=== PATIENT | male | born 1965 | race Caucasian/White ===

== ENCOUNTER 2018-06-26 04:12 | Emergency (ER) | payer OTHER ==
[2018-06-26 04:51] LABS: ADD MAN DIFF? NO
[2018-06-26 04:52] LABS: WHITE BLOOD COUNT 10.2 10^3/ul (4.8-10.8)
[2018-06-26 04:52] LABS: BASOPHILS % 0.4 % (0.0-2.0); EOSINOPHILS # 0.1 10^3/ul (0.0-0.5); EOSINOPHILS % 0.5 % (0.0-7.0); HEMATOCRIT 38.2 % (42.0-52.0); HEMOGLOBIN 13.7 g/dl (14.0-18.0); LYMPHOCYTES # 1.2 10^3/ul (0.8-2.9); LYMPHOCYTES % 11.5 % (15.0-51.0); MEAN CORPUSCULAR HEMOGLOBIN 30.1 pg (29.0-33.0); MEAN CORPUSCULAR HGB CONC 35.9 g/dl (32.0-37.0); MEAN PLATELET VOLUME 9.3 fl (7.4-10.4); MONOCYTE # 0.5 10^3/ul (0.3-0.9); MONOCYTES % 5.1 % (0.0-11.0); NEUTROPHIL # 8.4 10^3/ul (1.6-7.5); NEUTROPHILS % 82.3 % (39.0-77.0); PLATELET COUNT 248 10^3/UL (140-415); RED BLOOD COUNT 4.55 10^6/ul (4.70-6.10); RED CELL DISTRIBUTION WIDTH 12.4 % (11.5-14.5)
[2018-06-26 05:11] LABS: INR 0.94; PROTIME 12.7 Sec (11.9-14.9)
[2018-06-26 05:16] LABS: ADD UMIC NO; UR ASCORBIC ACID 40 mg/dL (NEGATIVE); UR BILIRUBIN (Dip) NEGATIVE (NEGATIVE); UR BLOOD (Dip) NEGATIVE (NEGATIVE); UR CLARITY CLEAR (CLEAR); UR COLOR AMBER (YELLOW); UR GLUCOSE (Dip) NEGATIVE (NEGATIVE); UR KETONES (Dip) NEGATIVE (NEGATIVE); UR LEUKOCYTE ESTERASE (Dip) NEGATIVE Leu/ul (NEGATIVE); UR NITRITE (Dip) NEGATIVE (NEGATIVE); UR SPECIFIC GRAVITY (Dip) 1.019 (1.003-1.030); UR TOTAL PROTEIN (Dip) NEGATIVE (NEGATIVE); UR UROBILINOGEN (Dip) 2+ mg/dL (NEGATIVE)
[2018-06-26 05:17] LABS: ALANINE AMINOTRANSFERASE 266 IU/L (13-69); ALBUMIN 4.3 g/dl (3.3-4.9); ALBUMIN/GLOBULIN RATIO 1.34; ALKALINE PHOSPHATASE 120 IU/L (42-121); ANION GAP 6 (5-13); ASPARTATE AMINO TRANSFERASE 332 IU/L (15-46); BLOOD UREA NITROGEN 19 mg/dl (7-20); CALCIUM 9.2 mg/dl (8.4-10.2); CARBON DIOXIDE 31 mmol/L (21-31); CHLORIDE 104 mmol/L (97-110); CREATININE 0.89 mg/dl (0.61-1.24); Estimated GFR > 60 mL/min (>60); GLUCOSE 161 mg/dl (70-220); LIPASE 39 U/L (23-300); POTASSIUM 3.7 mmol/L (3.5-5.1); SODIUM 141 mmol/L (135-144); TOTAL PROTEIN 7.5 g/dl (6.1-8.1)
[2018-06-26 05:29] LABS: TROPONIN-I < 0.012 ng/ml (0.000-0.120)
[2018-06-26] MEDS: FAMOTIDINE 20 MG TAB PO (05:42)
[2018-06-26] MEDS: LIDOCAINE/MYLANTA 40 ML BTL PO (05:43)
[2018-06-26 07:47] LABS: BILIRUBIN,INDIRECT 0.7 mg/dl (0-1.1); BILIRUBIN,TOTAL 0.9 mg/dl (0.2-1.3)
== END 2018-06-26 06:05 | disposition home or self-care (01) ==
LOC: E/R 04:12
DX: K76.9 Liver disease, unspecified (principal); I10 Essential (primary) hypertension; Z87.891 Personal history of nicotine dependence
CPT/HCPCS: 36415; 71045; 74176; 80053; 81003; 83690; 84484; 85025; 85610; 93005; 99285-25

== ENCOUNTER 2018-08-12 08:05 | Day surgery (SDC) | payer OTHER ==
[2018-08-12] MEDS ORDERED: LIDOCAINE 2% (SDV) 5 ML INJ (10:11)
[2018-08-12] MEDS ORDERED: PROPOFOL 40 ML (10:11)
[2018-08-12] MEDS ORDERED: ONDANSETRON 4 MG INJ IV (10:30)
== END 2018-08-12 14:38 | disposition home or self-care (01) ==
LOC: GIL 08:05
DX: Z12.11 Encounter for screening for malignant neoplasm of colon (principal); D12.5 Benign neoplasm of sigmoid colon; K64.8 Other hemorrhoids
CPT/HCPCS: 45380; 88305

== ENCOUNTER 2018-11-11 08:19 | Day surgery (SDC) | payer OTHER ==
[2018-11-11] MEDS: CEFAZOLIN 2 GM/50 ML (PMX) 50 ML IVPB (06:00)
[2018-11-11] MEDS: SOD CHLORIDE 0.9% 1,000 ML IV (06:00)
[2018-11-11] MEDS ORDERED: HYDROmorphONE 1 MG/5 ML IV SYRINGE IV (12:00)
[2018-11-11] MEDS ORDERED: hydrALAzine 20 MG INJ IV (12:00)
[2018-11-11] MEDS ORDERED: MEPERIDINE 25 MG INJ IV (12:00)
[2018-11-11] MEDS ORDERED: LABETALOL HCL 20MG INJ IV (12:00)
[2018-11-11] MEDS ORDERED: OXYCODONE/ACETAMINOPHEN (5/325) TAB PO (12:00)
[2018-11-11] MEDS ORDERED: MIDAZOLAM 1 MG/ML 2 ML INJ (12:11)
[2018-11-11] MEDS ORDERED: LIDOCAINE 2% (SDV) 5 ML INJ (12:11)
[2018-11-11] MEDS ORDERED: ROCURONIUM 50 MG INJ (12:11)
[2018-11-11] MEDS ORDERED: ONDANSETRON 4 MG INJ (12:12)
[2018-11-11] MEDS ORDERED: CEFAZOLIN 1 GM INJ (12:25)
[2018-11-11] MEDS: BUPIVACAINE 0.25% (MPF) 30 ML INJ (12:45)
[2018-11-11] MEDS ORDERED: PHENYLephrine (100 MCG/ML) 10ML SYG (12:46)
[2018-11-11] MEDS ORDERED: SUGAMMADEX SODIUM 200 MG/2 ML VIAL IV (12:56)
[2018-11-11] MEDS ORDERED: EPHEDrine 25 MG/5 ML SYG (13:02)
[2018-11-11] MEDS: HYDROmorphONE 1 MG/5 ML IV SYRINGE IV ×2 (13:20→13:37)
[2018-11-11] MEDS: ONDANSETRON 4 MG INJ IV (13:20)
[2018-11-11] MEDS ORDERED: HYDROCODONE/APAP (5/325) TAB PO (13:30)
[2018-11-11] MEDS: OXYCODONE/ACETAMINOPHEN (5/325) TAB PO (13:33)
== END 2018-11-11 15:50 | disposition home or self-care (01) ==
LOC: SDS 08:19
DX: K80.10 Calculus of gallbladder with chronic cholecystitis without obstruction (principal); I10 Essential (primary) hypertension; E66.9 Obesity, unspecified
CPT/HCPCS: 47562